=== PATIENT | female | born 1965 | race Caucasian/White ===

== ENCOUNTER 2017-05-08 18:55 | Emergency (ER) | payer MEDICARE, MEDICAID ==
[~2017-05-08] VITALS: Ht 165.1 cm; Wt 55.8 kg
[2017-05-08] MEDS ORDERED: PRILOSEC20 MG PO (20:56)
[2017-05-08] MEDS ORDERED: EFFEXOR XR75 MG PO (20:56)
[2017-05-08] MEDS ORDERED: OS-CAL 500+D31 EAC1 PO (20:57)
== END 2017-05-08 19:30 | disposition short-term general hospital (02) ==
LOC: ER 18:55
DX: S30.861A Insect bite (nonvenomous) of abdominal wall, initial encounter (principal); Z88.1 Allergy status to other antibiotic agents; W57.XXXA Bitten or stung by nonvenomous insect and other nonvenomous arthropods, initial encounter